=== PATIENT | female | born 1965 | race Two or more races ===

== ENCOUNTER 2019-08-20 05:30 | Day surgery (SDC) | payer BC, OTHER ==
[2019-08-14 15:15] LABS: BASOPHILS % (AUTO) 0.3 % (0-1); EOSINOPHILS # (AUTO) 0.2 X10'3 (0-0.9); EOSINOPHILS % (AUTO) 1.9 % (0-6); LYMPHOCYTES % (AUTO) 26.6 % (21-51); MEAN CORPUSCULAR HEMOGLOBIN 28.9 PG (27.0-31.0); MEAN CORPUSCULAR HGB CONC 33.2 g/dL (33.0-36.5); MEAN CORPUSCULAR VOLUME 87.3 FL (78-98); MONOCYTES # (AUTO) 0.9 X10'3 (0-0.9); MONOCYTES % (AUTO) 7.9 % (2-12); NEUTROPHILS # (AUTO) 7.1 X10'3 (1.8-7.7); NEUTROPHILS % (AUTO) 63.3 % (42-75); PRE OP HEMATOCRIT 43.4 % (35.0-45.0); PRE OP HEMOGLOBIN 14.4 g/dL (12.0-16.0); PRE OP PLATELET COUNT 323 X10'3 (140-440); RED BLOOD COUNT 4.97 X10'6 (4.20-5.60); RED CELL DISTRIBUTION WIDTH 14.1 % (11.5-14.5)
[2019-08-14 15:22] LABS: CLARITY,URINE SLIGHTLY CLOUDY (Clear); COLOR,URINE YELLOW (Yellow); GLUCOSE, URINE NEGATIVE (Neg); KETONES,URINE NEGATIVE (Neg); LEUKOCYTE ESTERASE ,URINE TRACE (Neg); NITRITES, URINE NEGATIVE (Neg); OCCULT BLOOD,URINE NEGATIVE (Neg); PROTEIN,URINE TRACE mg/dl (Neg); UROBILINOGEN,URINE 0.2 E.U/dL (0.2-1.0)
[2019-08-14 15:31] LABS: PRE OP PROTIME 10.1 SECONDS (9.0-12.0)
[2019-08-14 15:33] LABS: UA COLLECTION TYPE CLN CATCH MIDSTREAM
[2019-08-14 15:34] LABS: ALBUMIN 3.3 G/DL (3.4-5.0); ALBUMIN/GLOBULIN RATIO 0.8 (1.1-1.5); ALKALINE PHOSPHATASE 104 IU/L (46-116); BLOOD UREA NITROGEN 10 MG/DL (7-18); BUN/CREATININE RATIO 11.1 (6.6-38.0); CALCIUM 8.9 MG/DL (8.5-10.1); CHLORIDE 106 MMOL/L (99-107); PRE OP ALT 26 U/L (30-65); PRE OP ANION GAP 8 (8-16); PRE OP AST 19 U/L (10-37); PRE OP BILIRUB, TOTAL 0.4 MG/DL (0.0-1.0); PRE OP GLUCOSE 148 MG/DL (70-104); PRE OP POTASSIUM 3.5 MMOL/L (3.4-5.1); PRE OP SODIUM 142 MMOL/L (135-145); TOTAL CARBON DIOXIDE 28.4 MMOL/L (24-32); TOTAL PROTEIN 7.2 G/DL (6.4-8.2); eGFR 65 ML/MIN
[2019-08-14 15:36] LABS: BACTERIA,URINE 1+ /HPF (Neg); MUCUS STRANDS NONE SEEN /LPF (Neg); RBC,URINE 0-2 /HPF (0-2); SQUAMOUS EPITHELIAL CELL,UR MODERATE /LPF (FEW); STARCH,URINE MANY /HPF (NEGATIVE)
[2019-08-14 15:37] LABS: WBC CLUMPS,URINE FEW /HPF (NEGATIVE)
[~2019-08-20] VITALS: Ht 162.6 cm; Wt 130.0 kg
[~2019-08-20 05:30] MED LIST: ALBU8.5H8 INH; CETI-90 PO; COLE1TAB4 PO; ESCI5TAB PO; GABA-530 PO; GABA300T26 PO; GLIP5TAB13 PO; METF-900 PO; MULT-227 PO; SEMA1PEN SQ; TRAM50TA2 PO; albuterol 2.5 MG/3 ML nebule NEB ONE; ceFOXitin sod/dextrose 2g/50ml 50 ML IV ONE; famotidine 20mg tablet PO ONE; ringers solution, lacted 1,000 ML IV SCH
[2019-08-20 06:50] VITALS: BP 135/99
[2019-08-20 06:53] VITALS: BP 135/99
[2019-08-20] MEDS ORDERED: sevoflurane 250ml liquid IH ONE (07:12)
[2019-08-20] MEDS ORDERED: fentaNYL/PF 50MCG/1 ML 2ML syringe ONE (07:21)
[2019-08-20] MEDS ORDERED: LIDOcaine 2% (20mg/ml) 5ml vial ONE (07:21)
[2019-08-20] MEDS ORDERED: midazolam 2 mg/2 ml injection ONE (07:21)
[2019-08-20] MEDS ORDERED: propofol inj 20 ML IV ONE (07:21)
[2019-08-20] MEDS ORDERED: ondansetron/PF 4mg/2ml inj ONE (07:27)
[2019-08-20 07:45] VITALS: BP 115/75
--- NOTE | 2019-08-20 07:45 | NUR ---
Received from OR via [facility] , accompanied by Anesthesiologist MELBA and report given by Anesthesiolgist. PATIENT WITH 20G PIV IN LEFT UE RUNNING LR AT 100. DENIES PAIN AT THIS TIME. NO DRESSINGS PRESENT.10L MASK ON WITH 99% SATURATIONS. Addendum: 08/20/19 at 0757 by José Manuel Rabago RN, RN Amended: Links added.
[2019-08-20] MEDS ORDERED: ringers solution, lacted 1,000 ML IV SCH (07:52)
[2019-08-20 07:55] VITALS: BP 123/78
[2019-08-20] MEDS ORDERED: morphine 2 MG/ML inj. syringe IV PRN (07:55)
[2019-08-20] MEDS ORDERED: meperidine/PF 25mg/ml syringe IV PRN ×3 (07:55)
[2019-08-20] MEDS ORDERED: morphine 4 MG/ML inj SYRINge IV PRN (07:55)
[2019-08-20] MEDS ORDERED: proCHLORperazine 10 MG/2 ml inj IV PRN (07:55)
[2019-08-20] MEDS ORDERED: acetaminophen 325mg tablet PO PRN ×2 (07:55)
[2019-08-20] MEDS ORDERED: ondansetron/PF 4mg/2ml inj IV PRN (07:55)
[2019-08-20 08:05] VITALS: BP 130/75
[2019-08-20 08:15] VITALS: BP 128/73
--- NOTE | 2019-08-20 08:39 | NUR ---
All dc criteria for discharge home has been met. IV taken out without complications. All questions answered regarding dc paperwork. Vss. Significant other present to take patient home. Dressings cdi and vital signs stable. Taken out via wheelchair to personal vehicle where patient taken home by family/friend. Addendum: 08/20/19 at 0840 by José Manuel Rabago RN, RN Amended: Links added.
== END 2019-08-20 08:25 | disposition home or self-care (01) ==
LOC: PAS 05:30
PROVIDERS: ATTEND Obstetrics & Gynecology
DX: N95.0 Postmenopausal bleeding (principal); M19.90 Unspecified osteoarthritis, unspecified site; F41.9 Anxiety disorder, unspecified; J45.909 Unspecified asthma, uncomplicated; G43.909 Migraine, unspecified, not intractable, without status migrainosus; E11.40 Type 2 diabetes mellitus with diabetic neuropathy, unspecified; E66.01 Morbid (severe) obesity due to excess calories; Z68.42 Body mass index [BMI] 45.0-49.9, adult; Z98.890 Other specified postprocedural states; Z90.49 Acquired absence of other specified parts of digestive tract; Z98.41 Cataract extraction status, right eye; Z98.42 Cataract extraction status, left eye; Z88.2 Allergy status to sulfonamides; Z88.8 Allergy status to other drugs, medicaments and biological substances; Z88.1 Allergy status to other antibiotic agents; Z88.5 Allergy status to narcotic agent; Z79.899 Other long term (current) drug therapy; Z79.01 Long term (current) use of anticoagulants; Z82.49 Family history of ischemic heart disease and other diseases of the circulatory system; Z83.3 Family history of diabetes mellitus; Z11.59 Encounter for screening for other viral diseases
CPT/HCPCS: 36415; 58120; 80053; 81001; 82948; 85025; 85610; 85730; 86885; 86900; 86901; 87088; 87635; 93005; J0694; J2001; J2250; J2405; J2704; J3010; J7030; A4618; J7120

== ENCOUNTER 2021-06-03 22:02 | Emergency (ER) | payer BC, OTHER ==
[~2021-06-03] VITALS: Ht 162.6 cm; Wt 127.3 kg
[~2021-06-03 22:02] MED LIST changes: +ALBU8.5H17 INH; -ALBU8.5H8 INH; -albuterol 2.5 MG/3 ML nebule NEB ONE; -ceFOXitin sod/dextrose 2g/50ml 50 ML IV ONE; -famotidine 20mg tablet PO ONE; -ringers solution, lacted 1,000 ML IV SCH
[2021-06-03 22:29] LABS: BASOPHILS # (AUTO) 0.2 X10'3 (0-0.2); BASOPHILS % (AUTO) 1.8 % (0-1); EOSINOPHILS # (AUTO) 0.2 X10'3 (0-0.9); EOSINOPHILS % (AUTO) 1.8 % (0-6); HEMATOCRIT 41.5 % (35.0-45.0); LYMPHOCYTES # (AUTO) 4.3 X10'3 (1.1-4.8); LYMPHOCYTES % (AUTO) 32.1 % (21-51); MEAN CORPUSCULAR HEMOGLOBIN 29.2 PG (27.0-31.0); MEAN CORPUSCULAR HGB CONC 33.7 g/dL (33.0-36.5); MEAN CORPUSCULAR VOLUME 86.6 FL (78-98); MEAN PLATELET VOLUME 8.3 FL (7.4-10.4); MONOCYTES % (AUTO) 7.3 % (2-12); NEUTROPHILS # (AUTO) 7.6 X10'3 (1.8-7.7); PLATELET COUNT 326 X10'3 (140-440); RED BLOOD COUNT 4.79 X10'6 (4.20-5.60); RED CELL DISTRIBUTION WIDTH 13.6 % (11.5-14.5); WHITE BLOOD COUNT 13.3 X10'3 (4.5-11.0)
[2021-06-03 22:42] LABS: ALANINE AMINOTRANSFERASE 24 U/L (12-78); ALBUMIN 3.2 G/DL (3.4-5.0); ALBUMIN/GLOBULIN RATIO 0.8 (1.1-1.5); ALKALINE PHOSPHATASE 134 IU/L (46-116); ANION GAP 7 (8-16); ASPARTATE AMINO TRANSFERASE 14 U/L (10-37); BILIRUBIN,TOTAL 0.2 MG/DL (0.1-1.0); BLOOD UREA NITROGEN 13 MG/DL (7-18); BUN/CREATININE RATIO 15.9 (6.6-38.0); CALCIUM 9.4 MG/DL (8.5-10.1); CHLORIDE 102 MMOL/L (99-107); CREATININE 0.82 MG/DL (0.40-0.90); GLUCOSE 223 MG/DL (70-104); POTASSIUM 3.7 MMOL/L (3.5-5.1); SODIUM 137 MMOL/L (135-145); TOTAL CARBON DIOXIDE 27.8 MMOL/L (24-32); TOTAL PROTEIN 7.4 G/DL (6.4-8.2); eGFR 72 ML/MIN
[2021-06-03] MEDS ORDERED: iohexol 350MG/ML 100ml bottle IV ONE (22:50)
[2021-06-03 22:59] LABS: APTT 28 SECONDS (22-32)
[2021-06-03] MEDS ORDERED: diphenhydrAMINE 50 mg/ml inj IV ONE (23:20)
[2021-06-03] MEDS ORDERED: normal saline 1000ml 1,000 ML IV ONE (23:20)
[2021-06-03] MEDS ORDERED: [UNRECOGNIZED DRUG - REMARK] INJ NR (23:20)
[2021-06-03] MEDS ORDERED: metoclopramide 5 mg/ml inj IV ONE (23:20)
[2021-06-04] MEDS ORDERED: aspirin 325mg tablet PO ONE (00:30)
[2021-06-04 00:59] VITALS: BP 139/74
== END 2021-06-04 01:11 | disposition left against medical advice (07) ==
LOC: ER 22:03
DX: R07.89 Other chest pain (principal); R51.9 Headache, unspecified; R53.1 Weakness; J45.909 Unspecified asthma, uncomplicated; E11.9 Type 2 diabetes mellitus without complications; G89.29 Other chronic pain; Z90.49 Acquired absence of other specified parts of digestive tract; Z72.89 Other problems related to lifestyle; Z88.1 Allergy status to other antibiotic agents; Z88.5 Allergy status to narcotic agent; Z79.899 Other long term (current) drug therapy
CPT/HCPCS: 36415; 70450; 70496; 70498; 71045; 80053; 83880; 84484; 85025; 85610; 85730; 93005; 96361; 96374; 96375; 99291; J1200; J2765; J7030; Q9967